=== PATIENT | female | born 1970 | race Caucasian/White ===

== ENCOUNTER 2016-04-06 15:09 | Emergency (ER) | payer OTHER ==
[2016-04-06 15:20] VITALS: BMI 31.4
[2016-04-06] MEDS ORDERED: Albuterol/Ipratropium Neb 3 ML NEB NEB ONE (15:31)
[2016-04-06] MEDS ORDERED: METHYLPREDNISOLONE 125 MG/2 ML VIAL IV ONE (15:31)
[2016-04-06] MEDS ORDERED: TUSSIONEX 5 ML ORAL SYRINGE PO ONE (15:31)
[2016-04-06] MEDS ORDERED: SODIUM CHLORIDE 0.9% 10 ML FLUSH FLUSH PRN (15:31)
[2016-04-06] MEDS ORDERED: ASPIRIN (CHEWABLE) 81 MG TAB PO ONE (15:31)
--- NOTE | 2016-04-06 15:34 | EDPRACDOC ---
- General Information Chief Complaint: Dyspnea/Resp distress Stated Complaint: DX WITH PNEUMONIA ON 2ND ROUND ANTIBOTIC Time Seen by Provider: 04/06/16 15:25 Information Source: Patient Mode Of Arrival: Car Home Medications: Home Medications Albuterol Sulfate [Proair Hfa] 2 puff INH Q6H 04/06/16 Benazepril HCl [Lotensin] 20 mg PO DAILY 04/06/16 Budesonide/Formoterol Fumarate [Symbicort 160-4.5 Mcg Inhaler] 2 puff INH BID Chlorthalidone [Hygroton] 25 mg PO QHS 04/06/16 Escitalopram Oxalate [Lexapro] 20 mg PO DAILY 04/06/16 Hydrocodone Bit/Homatrop Me-Br [Hydrocodone-Homatropine Syrup] 5 ml PO Q4-6H PRN #120 syrup 04/06/16 Levofloxacin [Levaquin] 750 mg PO .DAILY X 10D 04/06/16 Meloxicam [Mobic] 7.5 mg PO DAILY PRN 04/06/16 Nuvaring 1 item PV DIR 04/06/16 Potassium Chloride [Klor-Con M10] 10 meq PO BID 04/06/16 Prednisone [Deltasone, Orasone] 20 mg PO DIR 04/06/16 Allergies/Adverse Reactions: Allergies Allergy/AdvReac Type Severity Reaction Status Date / Time No Known Allergies Allergy Verified 04/06/16 15:17 - History of Present Illness Onset: 2 weeks HPI: Pt c/o non productive cough, sob, congestion, chest heaviness x 2 weeks. Pt states went to PCP and is currently on Levaquin and steroids but not improving. Denies earache, sore throat, abd pain, n/v, changes in bowel or bladder, leg swelling, rash. Shortness of Breath: Mild Relevant History: Reports: Asthma Cough: Reports: Non-productive Rhinorrhea: Reports: Clear Ear Symptoms: Reports: None SOB Worsens with: Reports: Coughing SOB Improves with: Reports: Nothing Associated Signs and symptoms: Reports: Cough, Nasal Symptoms ED Past Medical History - History Reviewed Yes Nurses notes reviewed and agree except as marked - Patient Medical History Cardiac History: Reports: Hypertension Respiratory History: Reports: Asthma Surgical History: Reports: Tonsillectomy/Adnoidectomy - Social Medical History Smoking Status: Never smoker ETOH: Social Substance Abuse: None EDM Review of Systems - Review of Systems Constitutional: Diaphoresis Ears: No Symptoms Reported. negative: Pain, Hearing Loss, Drainage, Ear Pulling Throat: No Symptoms Reported. negative: Pain, Swelling Nose: Congestion Mouth: No Symptoms Reported. negative: Pain, Drooling Respiratory: Cough, Shortness of Breath Cardiovascular: Chest Pain Gastrointestinal: No Symptoms Reported. negative: Pain, Constipation, Nausea, Vomiting, Diarrhea, Melena, Formula Intolerance Genitourinary: No Symptoms Reported. negative: Dysuria, Hematuria, Frequency, Discharge, Bleeding, Testicular Pain, Neurological: No Symptoms Reported. negative: Headache, Dizziness, Seizure, Numbness, Weakness, Speech Difficulty, Gait Difficulty Musculoskeletal: No Symptoms Reported. negative: Neck, Chestwall, Ribs, Back, Shoulder, Arm, Elbow, Forearm, Wrist, Hand, Pelvis, Hip, Femur, Knee, Leg, Ankle , Foot Integumentary: No Symptoms Reported. negative: Itching, Rash, Bruising, Wound Allergic/Immunologic: No Symptoms Reported. negative: Hives, Itching Hematologic: No Symptoms Reported. negative: Lymphadenopathy, Easy Bruising, Easy Bleeding Psychiatric: No Symptoms Reported. negative: Anxiety, Depression, Hallucinations, Insomnia, Suicidal - Physical Exam Constitutional: Alert Oriented to: Time, Person, Place Last recorded Vital Signs: Last Vital Signs Temp 98.6 F 04/06/16 15:17 Pulse 101 04/06/16 15:20 Resp 18 04/06/16 15:20 BP 151/89 04/06/16 15:20 Pulse Ox 97 04/06/16 15:20 Oxygen Pulse Oxygen Saturation 97 O2 Device Room Air Oxygen Flow Rate Fraction of Inspired Oxygen ( FIO2) - HEENT Head: Normal ( normocephalic) Eye Exam: Normal (PERRL, EOMI, Sclera white) Oropharynx: Normal (Pharynx:Moist without exudate,Gums-no swelling) Tympanic Membrane: Normal ENT EAC: Normal Nose: No Symptoms Reported (septum midline) Neck: Normal (FROM, trachea at midline) - Respiratory/Cardiovascular Respiratory: Normal - CTA Cardiovascular: Tachycardia - GI Auscultation: Normal (NABS) Palpation: Normal (Soft,No rebound or guarding, non distended) Tenderness: Non tender - Musculoskeletal Back: Normal (Non-Tender) Extremities: Normal (Normal tone, Pulses 2+ No cyanosis or edema, FROM) - Integumentary Skin: Normal, Warm, Dry Lymphatics: Normal (no adenopathy) - Neurologic Memory Impaired: Normal Motor Function: Normal (Normal tone, Pulses 2+ No cyanosis or edema, FROM) Mood Description: Normal Perception: Normal ED SOB MDM - Differential Diagnosis Differential Diagnosis: Asthma, Heart Failure, Pulmonary Embolus, Pnuemonia, URI - Results Result Diagrams: 04/06/16 15:50 04/06/16 15:50 Results: 04/06/16 17:59 Laboratory Results - last 24 hr 04/06/16 04/06/16 04/06/16 15:50 15:50 15:50 WBC 23.3 H RBC 4.66 Hgb 14.3 Hct 41.1 MCV 88 MCH 30.6 MCHC 34.7 RDW 12.7 Plt Count 340 MPV 7.4 Neut % (Auto) Cancelled Lymph % (Auto) Cancelled [place] % (Auto) Cancelled Eos % (Auto) Cancelled Baso % (Auto) Cancelled Absolute Neuts (auto) Cancelled Absolute Lymphs (auto) Cancelled Seg Neuts % (Manual) 90 H Band Neutrophils % 4 Lymphocytes % (Manual) 5 L Monocytes % (Manual) 1 Absolute Neutrophils 21.90 H Absolute Lymphocytes 1.17 Vacuolated Neuts 2+ Toxic Granulation Tr Platelet Estimate Norm RBC Morphology Norm PT 10.0 INR 1.0 APTT 20.4 L Sodium 133 L Potassium 3.3 L Chloride 97 L Carbon Dioxide 23 Anion Gap 16 BUN 25 H Creatinine 0.80 Estimated GFR (MDRD) > 60 Glucose 150 H Calculated Osmolality 263 L Calcium 9.1 Corrected Calcium 9.2 Total Bilirubin 0.7 AST 25 ALT 34 Alkaline Phosphatase 47 Troponin I < 0.01 Fog-V-Jrfhaalbbat Pept 130 Total Protein 6.7 Albumin 3.9 - EKG EKG #1 EKG Time: 15:56 Rate: bpm: 101 [place]: Normal Rhythm: ST Block: None ST: Nonsp Comparison: 03/17/15 (no significant change) - Diagnostic Imaging Chest Image interpreted by: Radiologist Diagnostic Imaging Comments: IMPRESSION: 1. No CT evidence for acute pulmonary embolus. 2. No findings to explain the patient's history of cough and chest heaviness. Decision Time to Discharge: 17:59 - Departure Disposition: Home Condition: Good Final Diagnosis: Acute bronchitis, Acute asthma Instructions: Acute Bronchitis (ED), Asthma (ED) Education/Counseling Given To: Patient Education/Counseling Given Regarding: Diagnosis, Treatment, Follow Up Referrals: Ferny Hill MD [Primary Care Provider] - One Week Prescriptions: Hydrocodone Bit/Homatrop Me-Br [Hydrocodone-Homatropine Syrup] 5 ml PO Q4-6H PRN #120 syrup PRN Reason: Cough Additional Instructions: Continue medications as previously directed.
[2016-04-06] MEDS ORDERED: Pharmacy Review for Metformin - IV Contrast Given SCH (16:00)
[2016-04-06 16:01] LABS: MPV 7.4 fL (7.4-10.4)
[2016-04-06 16:12] LABS: BLOOD UREA NITROGEN 25 MG/DL (7-17); CALC CORRECTED 9.2 MG/DL (8.4-10.2); CALCIUM 9.1 MG/DL (8.4-10.2); CALCULATED OSMOLALITY 263 MOs/Kg (270-290); CHLORIDE 97 mEq/L (98-107); GLUCOSE 150 MG/DL (70-99); SODIUM LEVEL 133 mEq/L (137-146); TOTAL PROTEIN 6.7 G/DL (6.3-8.2)
[2016-04-06 16:13] LABS: PARTIAL THROMB. TIME 20.4 SEC (22-35)
[2016-04-06 16:23] LABS: SEG NEUTROPHIL 90 % (45-76); TOTAL CELL COUNT 100
--- NOTE | 2016-04-06 17:34 | DIRPT ---
CLINICAL DATA: Shortness of breath with cough and chest heaviness. EXAM: CT ANGIOGRAPHY CHEST WITH CONTRAST TECHNIQUE: Multidetector CT imaging of the chest was performed using the standard protocol during bolus administration of intravenous contrast. Multiplanar CT image reconstructions and MIPs were obtained to evaluate the vascular anatomy. CONTRAST: 80 cc Isovue 370 COMPARISON: None. FINDINGS: Mediastinum / Lymph Nodes: There is no axillary lymphadenopathy. No mediastinal lymphadenopathy. There is no hilar lymphadenopathy. Heart size is upper normal. The esophagus has normal imaging features. No thoracic aortic aneurysm. There is no evidence for dissection flap in the thoracic aorta. There is no filling defect within the opacified pulmonary arteries to suggest the presence of an acute pulmonary embolus. Lungs / Pleura: No focal airspace consolidation. No pulmonary edema or pleural effusion. Compressive atelectasis noted in the dependent lower lungs bilaterally. Upper Abdomen: Unremarkable. MSK / Soft Tissues: Bone windows reveal no worrisome lytic or sclerotic osseous lesions. Review of the MIP images confirms the above findings. IMPRESSION: 1. No CT evidence for acute pulmonary embolus. 2. No findings to explain the patient's history of cough and chest heaviness. Electronically Signed By: Beto Ramos M.D. On: 04/06/2016 17:31
[2016-04-06 18:19] VITALS: BP 149/81; PULSE 79; TEMP 98.4
== END 2016-04-06 18:18 | disposition home or self-care (01) ==
LOC: ED 15:09
DX: J20.9 Acute bronchitis, unspecified (principal); J45.901 Unspecified asthma with (acute) exacerbation
CPT/HCPCS: 36415; 71275; 80053; 83880; 84484; 85007; 85027; 85610; 85730; 93005; 94640; 96374; 99284; A9698; J2930; J3490; J7620